=== PATIENT | male | born 1965 | race Two or more races ===

== ENCOUNTER 2019-01-30 14:25 | Inpatient (IN) | payer BC, MEDICAID ==
[~2019-01-30] VITALS: Ht 165.1 cm; Wt 60.3 kg
[2019-01-30] MEDS ORDERED: ONDANSETRON HCL 4MG/2ML INJ IV STA (14:49)
[2019-01-30] MEDS ORDERED: MAGNESIUM/ALUMINUM HYDROXIDE/SIMETHICONE 30ML UDC PO STA (14:49)
[2019-01-30] MEDS ORDERED: FAMOTIDINE 20MG/2ML VIAL IV STA (14:49)
[2019-01-30] MEDS ORDERED: VISCOUS LIDOCAINE 2% 15 ML UDC PO STA (14:49)
[2019-01-30] MEDS ORDERED: SODIUM CHLORIDE 0.9% 1,000 ML IV ONE (14:49)
[2019-01-30 15:29] LABS: CHLORIDE 100 mEq/L (98-107)
[2019-01-30 15:33] LABS: ETHANOL BLOOD < 10 mg/dL; INR 1.7; PROTHROMBIN TIME 17.1 sec (9.6-11.0)
[2019-01-30 15:36] LABS: BASOPHILS % 0.9 % (0.0-2.0); EOSINOPHILS % 1.1 % (0.0-5.0); MEAN CORPUSCULAR HEMOGLOBIN 29.4 pg (28.0-32.0); MEAN CORPUSCULAR VOLUME 93.4 fL (80.0-94.0); MEAN PLATELET VOLUME 9.4 fl (7.4-10.4); MONOCYTES % 14.5 % (2.0-8.0); NEUTROPHILS % 61.5 % (40.0-76.0); PLATELET 84 x1000/uL (130-400); RED BLOOD CELL COUNT 2.07 mill/uL (4.7-6.1); RED CELL DISTRIBUTION WIDTH 23.2 % (11.6-14.6)
[2019-01-30 15:41] LABS: HEMATOCRIT. 19.4 % (42.0-52.0); HEMOGLOBIN. 6.1 g/dL (14.0-18.0)
[2019-01-30] MEDS ORDERED: KCL 20MEQ/100ML PREMIX 100 ML IV ONE (16:00)
[2019-01-30] MEDS ORDERED: POTASSIUM CHLORIDE 20MEQ/PACKET PO ONE (16:00)
[2019-01-30] MEDS ORDERED: PANTOPRAZOLE SODIUM 40 MG/VIAL IV ONE (16:00)
[2019-01-30 17:08] LABS: PLATELET ESTIMATE DECREASED
[2019-01-31] VITALS (19 sets, daily range): BP systolic 91–115; BP diastolic 33–67
[2019-01-31] MEDS ORDERED: LORAZEPAM 2MG/ML CPJ IV PRN (01:15)
[2019-01-31] MEDS ORDERED: ONDANSETRON HCL 4MG/2ML INJ IV PRN (01:15)
[2019-01-31] MEDS ORDERED: ACETAMINOPHEN 325MG TABLET PO PRN (01:15)
[2019-01-31 07:04] LABS: EOSINOPHILS % 0.7 % (0.0-5.0); HEMATOCRIT. 21.8 % (42.0-52.0); LYMPHOCYTES % 22.7 % (20.0-50.0); MEAN CORPUSCULAR HEMOGLOBIN 29.7 pg (28.0-32.0); MEAN CORPUSCULAR VOLUME 92.6 fL (80.0-94.0); MEAN PLATELET VOLUME 9.3 fl (7.4-10.4); MONOCYTES % 13.1 % (2.0-8.0); NEUTROPHILS % 62.5 % (40.0-76.0); PLATELET 86 x1000/uL (130-400); RED BLOOD CELL COUNT 2.35 mill/uL (4.7-6.1); RED CELL DISTRIBUTION WIDTH 21.4 % (11.6-14.6)
[2019-01-31 07:17] LABS: CHLORIDE 108 mEq/L (98-107)
[2019-01-31] MEDS: PANTOPRAZOLE 40MG DR TABLET PO SCH (09:47)
[2019-01-31] MEDS: FOLIC ACID 1MG TABLET PO SCH (09:48)
[2019-01-31] MEDS: MULTIVITAMINS,THER W-MINERALS TABLET PO SCH (09:48)
[2019-01-31] MEDS: THIAMINE HCL 100MG TABLET PO SCH (09:48)
[2019-01-31 10:04] LABS: TOTAL IRON BINDING CAPACITY 202 ug/dL (250-450)
[2019-01-31 11:43] LABS: FERRITIN 67 ng/mL (22-322)
[2019-01-31 11:55] LABS: HEPATITIS B SURFACE ANTIGEN NEGATIVE
[2019-01-31 12:24] LABS: HEPATITIS A AB IGM NEGATIVE (NEGATIVE)
[2019-01-31 16:57] LABS: HEMATOCRIT 24.6 % (42.0-52.0); HEMOGLOBIN 8.1 g/dL (14.0-18.0)
[2019-01-31 20:16] LABS: HEMATOCRIT 25.8 % (42.0-52.0); HEMOGLOBIN 8.3 g/dL (14.0-18.0)
[2019-02-01] VITALS (11 sets, daily range): BP systolic 90–115; BP diastolic 54–64
[2019-02-01 01:57] LABS: HEMATOCRIT 25.8 % (42.0-52.0); HEMOGLOBIN 8.3 g/dL (14.0-18.0)
[2019-02-01 07:15] LABS: INR 1.8; PROTHROMBIN TIME 18.1 sec (9.6-11.0)
[2019-02-01 07:23] LABS: CHLORIDE 106 mEq/L (98-107)
[2019-02-01 07:25] LABS: BASOPHILS % 0.6 % (0.0-2.0); EOSINOPHILS % 0.8 % (0.0-5.0); HEMATOCRIT. 23.8 % (42.0-52.0); LYMPHOCYTES % 23.3 % (20.0-50.0); MEAN CORPUSCULAR HEMOGLOBIN 30.4 pg (28.0-32.0); MEAN CORPUSCULAR VOLUME 90.6 fL (80.0-94.0); MEAN PLATELET VOLUME 9.3 fl (7.4-10.4); MONOCYTES % 12.4 % (2.0-8.0); NEUTROPHILS % 62.9 % (40.0-76.0); PLATELET 90 x1000/uL (130-400); RED BLOOD CELL COUNT 2.63 mill/uL (4.7-6.1); RED CELL DISTRIBUTION WIDTH 20.1 % (11.6-14.6)
[2019-02-01] MEDS: PANTOPRAZOLE 40MG DR TABLET PO SCH (09:23)
[2019-02-01] MEDS: MULTIVITAMINS,THER W-MINERALS TABLET PO SCH (09:23)
[2019-02-01] MEDS: THIAMINE HCL 100MG TABLET PO SCH (09:23)
[2019-02-01] MEDS: FOLIC ACID 1MG TABLET PO SCH (09:24)
[2019-02-01] MEDS: CHLORDIAZEPOXIDE 25MG CAPSULE PO SCH ×2 (13:47→21:22)
[2019-02-01] MEDS: PHYTONADIONE 10MG/ML AMP SUBCUT SCH (13:48)
[2019-02-02] VITALS (18 sets, daily range): BP systolic 58–111; BP diastolic 41–69
[2019-02-02] MEDS: SODIUM CHLORIDE 0.9% 1,000 ML IV SCH ×3 (02:50→21:04)
[2019-02-02 05:26] LABS: BASOPHILS % 0.9 % (0.0-2.0); EOSINOPHILS % 1.5 % (0.0-5.0); HEMATOCRIT. 23.3 % (42.0-52.0); HEMOGLOBIN. 7.6 g/dL (14.0-18.0); LYMPHOCYTES % 26.2 % (20.0-50.0); MEAN CORPUSCULAR VOLUME 92.4 fL (80.0-94.0); MONOCYTES % 12.2 % (2.0-8.0); NEUTROPHILS % 59.2 % (40.0-76.0); PLATELET 97 x1000/uL (130-400); RED BLOOD CELL COUNT 2.52 mill/uL (4.7-6.1); RED CELL DISTRIBUTION WIDTH 20.3 % (11.6-14.6)
[2019-02-02 05:31] LABS: INR 1.8; PROTHROMBIN TIME 17.8 sec (9.6-11.0)
[2019-02-02 05:36] LABS: CHLORIDE 107 mEq/L (98-107)
[2019-02-02] MEDS: CHLORDIAZEPOXIDE 25MG CAPSULE PO SCH ×3 (05:41→21:04)
[2019-02-02] MEDS: PANTOPRAZOLE 40MG DR TABLET PO SCH (07:30)
[2019-02-02] MEDS: FOLIC ACID 1MG TABLET PO SCH (08:48)
[2019-02-02] MEDS: THIAMINE HCL 100MG TABLET PO SCH (08:48)
[2019-02-02] MEDS: MULTIVITAMINS,THER W-MINERALS TABLET PO SCH (08:48)
[2019-02-02] MEDS: PHYTONADIONE 10MG/ML AMP SUBCUT SCH (09:21)
[2019-02-02] MEDS: PANTOPRAZOLE SODIUM 40 MG/VIAL IV SCH (10:16)
[2019-02-02] MEDS ORDERED: POTASSIUM CHLORIDE INJ 40 MEQ in DEXT 5% WATER 250 ML IV SCH (12:00)
[2019-02-02 15:11] LABS: INR 1.5; PROTHROMBIN TIME 15.5 sec (9.6-11.0)
[2019-02-02] MEDS ORDERED: MIDAZOLAM HCL 5 MG/5 ML VIAL IV PRN (16:12)
[2019-02-02] MEDS ORDERED: MIDAZOLAM HCL 5 MG/5 ML VIAL ONE (16:12)
[2019-02-02] MEDS ORDERED: SIMETHICONE 40 MG/0.6 ML 30ML ONE (16:12)
[2019-02-02] MEDS ORDERED: FENTANYL CITRATE/PF 50MCG/ML 2ML VIAL IV PRN (16:13)
[2019-02-02] MEDS ORDERED: FENTANYL CITRATE/PF 50MCG/ML 2ML VIAL ONE (16:13)
[2019-02-03] VITALS (9 sets, daily range): BP systolic 89–103; BP diastolic 55–68
[2019-02-03] MEDS: CHLORDIAZEPOXIDE 25MG CAPSULE PO SCH ×2 (05:35→14:26)
[2019-02-03 06:28] LABS: CHLORIDE 111 mEq/L (98-107)
[2019-02-03 06:38] LABS: BASOPHILS % 0.6 % (0.0-2.0); HEMATOCRIT. 22.3 % (42.0-52.0); HEMOGLOBIN. 7.3 g/dL (14.0-18.0); LYMPHOCYTES % 20.5 % (20.0-50.0); MEAN CORPUSCULAR VOLUME 94.6 fL (80.0-94.0); MEAN PLATELET VOLUME 9.1 fl (7.4-10.4); MONOCYTES % 12.3 % (2.0-8.0); NEUTROPHILS % 65.6 % (40.0-76.0); PLATELET 100 x1000/uL (130-400); RED BLOOD CELL COUNT 2.36 mill/uL (4.7-6.1); RED CELL DISTRIBUTION WIDTH 21.2 % (11.6-14.6)
[2019-02-03] MEDS: PANTOPRAZOLE SODIUM 40 MG/VIAL IV SCH (08:10)
[2019-02-03] MEDS: PHYTONADIONE 10MG/ML AMP SUBCUT SCH (08:11)
[2019-02-03] MEDS: FOLIC ACID 1MG TABLET PO SCH (08:11)
[2019-02-03] MEDS: THIAMINE HCL 100MG TABLET PO SCH (08:11)
[2019-02-03] MEDS: MULTIVITAMINS,THER W-MINERALS TABLET PO SCH (08:11)
[2019-02-03] MEDS ORDERED: POTASSIUM CHLORIDE 20MEQ TABLET SR PO NR (09:30)
== END 2019-02-03 16:30 | disposition home or self-care (01) | DRG 280 ==
LOC: EDBD 14:25 → ER 14:25 → EDBEDREQ 16:03 → 5EST 17:21 → EDBEDREQ 17:32 → EDBEDREQSVC 17:32 → ENRESERV 18:59
PROVIDERS: ADMIT Internal Medicine; ATTEND Internal Medicine
PROC: 30233K1 Transfusion of Nonautologous Frozen Plasma into Peripheral Vein, Percutaneous Approach (ICD-10-PCS; principal; 2019-01-30)
PROC: 30233N1 Transfusion of Nonautologous Red Blood Cells into Peripheral Vein, Percutaneous Approach (ICD-10-PCS; 2019-01-30)
PROC: 0DJ68ZZ Inspection of Stomach, Via Natural or Artificial Opening Endoscopic (ICD-10-PCS; 2019-02-02)
DX: K70.30 Alcoholic cirrhosis of liver without ascites (principal); E43 Unspecified severe protein-calorie malnutrition; I85.11 Secondary esophageal varices with bleeding; D61.818 Other pancytopenia; D68.4 Acquired coagulation factor deficiency; D68.9 Coagulation defect, unspecified; E87.1 Hypo-osmolality and hyponatremia; D69.6 Thrombocytopenia, unspecified; K76.6 Portal hypertension; E87.6 Hypokalemia; F10.239 Alcohol dependence with withdrawal, unspecified; K44.9 Diaphragmatic hernia without obstruction or gangrene; F17.210 Nicotine dependence, cigarettes, uncomplicated; K31.9 Disease of stomach and duodenum, unspecified; Z68.22 Body mass index [BMI] 22.0-22.9, adult; Z71.41 Alcohol abuse counseling and surveillance of alcoholic; Z71.6 Tobacco abuse counseling
CPT/HCPCS: 36415; 71045; 76700; 80048; 80320; 82270; 82728; 83540; 83550; 85014; 85018; 86705; 86709; 86803; 86850; 86900; 86920; 86927; 87015; 87045; 87340; 87427; 87449; 93970; 96374; 96375; 99291; C9113; J2250; J2405; J3010; J3430; J3480; J3490; J7030; J7060; P9016; P9017; G0480